=== PATIENT | female | born 1960 | race Caucasian/White ===

== ENCOUNTER 2017-07-25 00:55 | Inpatient (IN) | payer OTHER ==
[~2017-07-25] VITALS: Ht 167.6 cm; Wt 65.3 kg
[~2017-07-25 00:55] MED LIST: CLIN1CAP51 PO; FURO-85 PO; HYDCR1CL TOP; HYDR-3419 PO; LACT10SO17 PO; MAGN400T6 PO; MULT-506 PO; PANT40TA PO; SPIR50TA2 PO
[2017-07-25] MEDS ORDERED: SODIUM CHLORIDE 0.9% 1000ML 1,000 ML IV STA ×3 (01:40→03:09)
[2017-07-25 02:37] LABS: INR 1.4 (0.9-1.1); PARTIAL THROMBOPLASTIN RATIO 1.2; PROTHROMBIN TIME (PATIENT) 15.4 SECONDS (9.0-12.0)
[2017-07-25 02:40] LABS: ALT/SGPT 47 U/L (12-78); AST/SGOT 102 U/L (15-37); BLOOD UREA NITROGEN 17 mg/dl (7-18); BUN/CREATININE RATIO 20.8 (10-20); CALCIUM 8.2 mg/dl (8.5-10.1); CARBON DIOXIDE 25 mmol/L (21-32); CHLORIDE 98 mmol/L (98-107); CREATININE 0.84 mg/dl (0.60-1.20); GLUCOSE 115 mg/dl (70-99); SODIUM 130 mmol/L (136-145)
[2017-07-25 02:48] LABS: URINE APPEARANCE CLOUDY (CLEAR); URINE BILIRUBIN NEG (NEG); URINE COLOR DK YELLOW; URINE EPITHELIAL CELL AUTO >30 /lpf (0-5); URINE NITRITE NEG (NEG); URINE PH 5.5 (4.5-7.5); URINE SPECIFIC GRAVITY 1.018 (1.000-1.030); UROBILINOGEN NEG (NEG); ZZUR CULT IF INDIC CLEAN CATCH YES
[2017-07-25 02:51] LABS: ALB/GLOB RATIO 0.7 (0.9-2); ALKALINE PHOSPHATASE 82 U/L (45-117); CKMB/CK RATIO 0.7 (0-3.0); THYROID STIMULATING HORMONE 0.746 uIu/ml (0.300-4.500)
[2017-07-25 02:55] LABS: HEMATOCRIT 34.5 % (37-47); MEAN CELL VOLUME 97.7 fL (80-100); MEAN CORPUSCULAR HEMOGLOBIN 35.1 pg (25-34); MEAN CORPUSCULAR HGB CONC 35.9 g/dl (32-36); MEAN PLATELET VOLUME 10.9 fL (7.4-10.4); PLATELET COUNT 76 K/uL (130-400); RED BLOOD COUNT 3.53 M/uL (4.2-5.4); WHITE BLOOD COUNT 13.09 K/uL (4.8-10.8)
[2017-07-25 03:04] LABS: BASO % 0.1 %; BASO ABS # 0.01 K/uL (0-0.2); COMPLETE YES; EOS % 0.1 %; IG% 0.3 %; LYMPH ABS # 0.66 K/uL (1.2-3.4); MONO % 23.5 %; PLT ESTIMATE DECREASED; VACUOLIZATION 1+
[2017-07-25 03:04] LABS: MANUAL MICROSCOPIC REQUIRED? NO; REVIEW REQ? YES
[2017-07-25] MEDS ORDERED: IBUPROFEN 600 MG TAB PO STA (03:09)
[2017-07-25 03:28] LABS: MAGNESIUM 1.9 mg/dl (1.8-2.4)
[2017-07-25] MEDS ORDERED: CEFTRIAXONE SOD INJ 1 GM ADDVIAL IV STA (03:44)
[2017-07-25] MEDS ORDERED: DAPTOMYCIN IV STA (03:54)
[2017-07-25] MEDS ORDERED: SODIUM CHLORIDE 0.9% IV STA (03:54)
[2017-07-25] MEDS ORDERED: AZTREONAM IV 2,000 MG in DEXTROSE 5% 100ML 100 ML IV STA (03:54)
--- NOTE | 2017-07-25 04:01 | EMERGENCY ROOM VISIT NOTE ---
History First contact with patient: 01:25 Chief Complaint: OTHER COMPLAINT Stated Complaint: WEAKNESS History of Present Illness The patient is a 57 year old female who presents to the Emergency Room with complaints of fever, confusion, fatigue and lethargy. Patient states for the past week she's been feeling more lethargic. Patient states she's been seeing things that were not there and feeling confused at times. Patient states she's missed some doses of her lactulose on accident. Patient states she continues to occasionally drink alcohol even though she knows she is not supposed to do this with her cirrhosis. Patient follows with Stefania WOLFF. She saw one year ago and states she had a negative colonoscopy and endoscopy. Patient was an occasional cough and headache. Patient denies chest pain, dyspnea, abdominal pain, nausea, vomiting, diarrhea, neck stiffness, earache, sinus pain or congestion. Review of Systems See HPI for pertinent positives & negatives. A total of 10 systems reviewed and were otherwise negative. Past Medical/Surgical History Medical Problems: (1) Alcoholic cirrhosis of liver with ascites Surgical Problems: (1) History of appendectomy Family History Cancer Diabetes mellitus Heart disease Kidney disease Kidney stones Social History Smoking Status: Current Every Day Smoker Alcohol Use: occasionally Drug Use: none Housing Status: lives with family Occupation Status: employed Current/Historical Medications Scheduled Furosemide (Lasix), 20 MG PO DAILY Lactulose (Chronulac), 20 MG PO DAILY Magnesium Oxide (Mag-Ox), 400 MG PO BID Multivitamin (Multivitamin), 1 TAB PO DAILY Pantoprazole (Protonix), 40 MG PO DAILY Spironolactone (Aldactone), 50 MG PO DAILY Physical Exam Vital Signs Date Time Temp Pulse Resp B/P (MAP) Pulse Ox O2 Delivery O2 Flow Rate FiO2 07/25/17 03:01 99/65 07/25/17 02:55 84 21 97 07/25/17 02:40 78 21 96 07/25/17 02:39 80 16 94/59 97 07/25/17 02:38 94/59 07/25/17 02:13 96 Room Air 07/25/17 02:11 96/55 07/25/17 02:10 82 19 98 07/25/17 02:01 111/100 07/25/17 01:55 87 17 07/25/17 01:40 88 18 97 07/25/17 01:33 84 07/25/17 01:31 96/67 07/25/17 01:13 38.3 92 18 106/67 97 Room Air Physical Exam VITALS: Vitals are noted on the nurse's note and reviewed by myself. Vital signs stable. GENERAL: White female following commands appropriately, in no acute distress, nondiaphoretic, well-developed well-nourished. SKIN: The skin was without rashes, erythema, edema, or bruising. There is no tenting of the skin. Capillary reflex less than 2 seconds. HEAD: Normocephalic atraumatic. EARS: External auditory canals clear, tympanic membranes pearly banerjee without erythema or effusion bilaterally. EYES: Pupils equal round and reactive to light and accommodation. Conjunctivae without injection, sclerae without icterus. Extraocular movements intact. NOSE: Patent, turbinates without inflammation or discharge. No sinus tenderness. MOUTH: Mucous membranes moist. Pharynx without erythema or exudate. Uvula midline. Airway patent. Tongue does not deviate. NECK: Supple without nuchal rigidity. No lymphadenopathy. No thyromegaly. Cervical spine is nontender. No JVD. No meningeal signs HEART: Regular rate and rhythm without murmurs gallops or rubs. LUNGS: Clear to auscultation bilaterally without wheezes, rales or rhonchi. No dullness to percussion. No retractions or accessory muscle use. ABDOMEN: Positive bowel sounds x 4. Normal tympanic percussion. Soft, nontender, without masses or organomegaly. Hollins sign negative. No guarding or rebound tenderness. No CVA tenderness MUSCULOSKELETAL: No muscle atrophy, erythema, or edema noted. NEURO: Patient was alert and oriented to person place and time. Normal sensation to light and sharp touch. No focal neurological deficits. Medical Decision & Procedures Laboratory Results 07/25/17 02:04 Red Blood Count 3.53, Mean Corpuscular Volume 97.7, Mean Corpuscular Hemoglobin 35.1, Mean Corpuscular Hemoglobin Concent 35.9, Mean Platelet Volume 10.9, Neutrophils (%) (Auto) 71.0, Lymphocytes (%) (Auto) 5.0, Monocytes (%) (Auto) 23.5, Eosinophils (%) (Auto) 0.1, Basophils (%) (Auto) 0.1, Neutrophils # (Auto ) 9.29, Lymphocytes # (Auto) 0.66, Monocytes # (Auto) 3.08, Eosinophils # (Auto ) 0.01, Basophils # (Auto) 0.01 07/25/17 02:04 Test 07/25/17 02:00 07/25/17 02:04 07/25/17 02:05 07/25/17 02:11 Urine Color DK YELLOW Urine Appearance CLOUDY (CLEAR) Urine pH 5.5 (4.5-7.5) Urine Specific [place] 1.018 (1.000-1.030) Urine Protein 1+ (NEG) Urine Glucose (UA) NEG (NEG) Urine Ketones NEG (NEG) Urine Occult Blood 3+ (NEG) Urine Nitrite NEG (NEG) Urine Bilirubin NEG (NEG) Urine Urobilinogen NEG (NEG) Urine Leukocyte Esterase MODERATE (NEG) Urine WBC (Auto) >30 /hpf (0-5) Urine RBC (Auto) >30 /hpf (0-4) Urine Hyaline Casts (Auto) 1-5 /lpf (0-5) Urine Epithelial Cells (Auto) >30 /lpf (0-5) Urine Bacteria (Auto) 1+ (NEG) Urine Yeast (Auto) BUDDING (NONE PRSENT) White Blood Count 13.09 K/uL (4.8-10.8) Red Blood Count 3.53 M/uL (4.2-5.4) Hemoglobin 12.4 g/dL (12.0-16.0) Hematocrit 34.5 % (37-47) Mean Corpuscular Volume 97.7 fL (80-100) Mean Corpuscular Hemoglobin 35.1 pg (25-34) Mean Corpuscular Hemoglobin Concent 35.9 g/dl (32-36) Platelet Count 76 K/uL (130-400) Mean Platelet Volume 10.9 fL (7.4-10.4) Neutrophils (%) (Auto) 71.0 % Lymphocytes (%) (Auto) 5.0 % Monocytes (%) (Auto) 23.5 % Eosinophils (%) (Auto) 0.1 % Basophils (%) (Auto) 0.1 % Neutrophils # (Auto) 9.29 K/uL (1.4-6.5) Lymphocytes # (Auto) 0.66 K/uL (1.2-3.4) Monocytes # (Auto) 3.08 K/uL (0.11-0.59) Eosinophils # (Auto) 0.01 K/uL (0-0.5) Basophils # (Auto) 0.01 K/uL (0-0.2) RDW Standard Deviation 50.8 fL (36.4-46.3) RDW Coefficient of Variation 14.2 % (11.5-14.5) Immature Granulocyte % (Auto) 0.3 % Immature Granulocyte # (Auto) 0.04 K/uL (0.00-0.02) Toxic Vacuolation 1+ Platelet Estimate DECREASED Prothrombin Time 15.4 SECONDS (9.0-12.0) Prothromb Time International Ratio 1.4 (0.9-1.1) Activated Partial Thromboplast Time 31.6 SECONDS (21.0-31.0) Partial Thromboplastin Ratio 1.2 Anion Gap 7.0 mmol/L (3-11) Est Creatinine Clear Calc Drug Dose 68.1 ml/min Estimated GFR () 90.7 Estimated GFR (Non- 78.2 BUN/Creatinine Ratio 20.8 (10-20) Calcium Level 8.2 mg/dl (8.5-10.1) Magnesium Level 1.9 mg/dl (1.8-2.4) Total Bilirubin 2.6 mg/dl (0.2-1) Aspartate Amino Transf (AST/SGOT) 102 U/L (15-37) Alanine Aminotransferase (ALT/SGPT) 47 U/L (12-78) Alkaline Phosphatase 82 U/L (45-117) Total Creatine Kinase 203 U/L (26-192) Creatine Kinase MB 1.5 ng/ml (0.5-3.6) Creatine Kinase MB Ratio 0.7 (0-3.0) Troponin I < 0.015 ng/ml (0-0.045) Total Protein 6.6 gm/dl (6.4-8.2) Albumin 2.7 gm/dl (3.4-5.0) Globulin 3.9 gm/dl (2.5-4.0) Albumin/Globulin Ratio 0.7 (0.9-2) Procalcitonin 1.36 ng/ml (0-0.5) Thyroid Stimulating Hormone (TSH) 0.746 uIu/ml (0.300-4.500) Ammonia 38.0 umol/L (11-32) Bedside Lactic Acid Venous 1.38 mmol/L (0.90-1.70) Medications Administered Medications (Trade) Dose Ordered Sig/Parth Route Start Time Stop Time Status Last Admin Dose Admin Sodium Chloride 1,000 ml @ 999 mls/hr Q1H1M STAT IV 07/25/17 01:40 07/25/17 02:40 DC 07/25/17 01:40 999 MLS/HR Sodium Chloride 1,000 ml @ 125 mls/hr Q8H STAT IV 07/25/17 01:40 07/25/17 09:39 07/25/17 02:59 125 MLS/HR Ibuprofen (Motrin Tab) 600 mg NOW STAT PO 07/25/17 03:09 07/25/17 03:10 DC 07/25/17 03:24 600 MG Sodium Chloride 1,000 ml @ 999 mls/hr Q1H1M STAT IV 07/25/17 03:09 07/25/17 04:09 07/25/17 03:25 999 MLS/HR ED Course Prior records/ancillary studies reviewed. Triage Nursing notes reviewed. Additional history obtained from family The patient's history was concerning for fever and feeling confused. Differential diagnosis: Etiologies such as hepatic encephalopathy, viral syndrome, otitis, pharyngitis, pneumonia, influenza, meningitis, urinary tract infection, sepsis, bacteremia, as well as others were entertained. Physical examination: Patient is alert and oriented 3 ER treatment provided: IV fluids On reassessment the patient felt better. Diagnostics interpreted by me: ECG: Normal sinus, normal intervals, no acute ST-T wave changes. Impression normal sinus rhythm interpreted by myself The labs revealed leukocytosis, elevated pro calcitonin, urine concerning for infection and sent for culture Negative lactic acid, blood cultures pending Imaging studies: CT head negative for intracranial bleed per stat radiology Chest x-ray with no acute consolidation, pneumothorax or free air per my interpretation Consultation: A consultation was placed with Dr Akhtar. The case was discussed and diagnostics were reviewed. The patient was evaluated in the ER for further treatment. This appears to be consistent with UTI with sepsis and altered mental status. Patient will be evaluated by medicine for possible admission. She was started on broad-spectrum antibiotics. She is a penicillin allergy of hives. She is unsure but thinks she can take cephalosporin but is not 100%. Urine culture is pending. Blood cultures pending. No pneumonia on x-ray. Patient was hypotensive, tachycardic and febrile with a leukocytosis and concerns her urine infection. By the evaluation outlined above emergent etiologies such as otitis, pharyngitis, pneumonia, meningitis, bacteremia, as well as others were deemed relatively unlikely. The pt informed about the findings as listed above. All questions were answered and pleased with the treatment. Case reviewed with my attending. Medical Decision As above Medication Reconcilliation Current Medication List: was personally reviewed by me Blood Pressure Screening Patient's blood pressure: Normal blood pressure Impression Primary Impression: UTI (urinary tract infection) Additional Impressions: Thrombocytopenia Altered mental status Sepsis Departure Information Dispostion Being Evaluated By Hospitalist Condition FAIR Referrals Melanie Balbuena, C.R.N.P. (PCP) Patient Instructions My [facility] Problem Qualifiers Primary Impression: UTI (urinary tract infection) Urinary tract infection type: acute cystitis Hematuria presence: with hematuria Qualified Codes: N30.01 - Acute cystitis with hematuria
[2017-07-25] MEDS ORDERED: POLYETHYLENE (MIRALAX) 17 GM PACK PO PRN (04:30)
[2017-07-25] MEDS ORDERED: ONDANSETRON INJ 2 MG/ML 2 ML VIAL IV PRN (04:30)
--- NOTE | 2017-07-25 04:34 | History and Physical ---
History & Physical Date & Time of Service: Jul 25, 2017 at 04:28 Chief Complaint: Weakness Primary Care Physician: Melanie Balbuena C.R.N.P. History of Present Illness Source: patient 57-year-old female with past medical history of liver cirrhosis presented to the ER with lethargy. The patient stated that she be in lethargic for the last 2 days associated with fevers and chills. 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 Last drink was last weekend but she is unable to quantify how much she drinks. Denies any nausea, vomiting or diarrhea. Denies any abdominal pain, bright red bleeding per rectum or hematemesis. She did complain of some dysuria but denies any hematuria. Complains of a headache currently, all over her head with no radiation but denies any neck pain or photophobia. Denies any rashes, petechiae, bleeding gums. She also stated that she has had decreased by mouth intake over the last few days and had not taken her medications also Past Medical/Surgical History Medical Problems: (1) Alcoholic cirrhosis of liver with ascites Status: Chronic Surgical Problems: (1) History of appendectomy Status: Resolved Family History Cancer Diabetes mellitus Heart disease Kidney disease Kidney stones Social History Smoking Status: Current Every Day Smoker Drug Use: none Occupational Status: employed Multi-Drug Resistant Organisms History of MDRO: No Allergies Coded Allergies: Penicillins (Verified Allergy, Unknown, 07/25/17) Home Medications Scheduled Furosemide (Lasix), 20 MG PO DAILY Lactulose (Chronulac), 20 GM PO DAILY Magnesium Oxide (Mag-Ox), 400 MG PO BID Multivitamin (Multivitamin), 1 TAB PO DAILY Pantoprazole (Protonix), 40 MG PO DAILY Spironolactone (Aldactone), 50 MG PO DAILY Review of Systems Constitutional: + fever, + chills, + sweats, + problem reported (lethargic) Eyes: No worsening of vision ENT: No hearing loss Respiratory: No cough Cardiovascular: No chest pain, No orthopnea Abdomen: No pain, No nausea, No vomiting Musculoskeletal: No joint pain Genitourinary - Female: + dysuria, No hematuria Neurologic: No memory loss Psychiatric: No depression symptoms Endocrine: + fatigue Integumentary: No rash Physical Exam Vital Signs Date Time Temp Pulse Resp B/P (MAP) Pulse Ox O2 Delivery O2 Flow Rate FiO2 07/25/17 04:23 36.9 07/25/17 03:01 99/65 07/25/17 02:55 84 21 97 07/25/17 02:40 78 21 96 07/25/17 02:39 80 16 94/59 97 07/25/17 02:38 94/59 07/25/17 02:13 96 Room Air 07/25/17 02:11 96/55 07/25/17 02:10 82 19 98 07/25/17 02:01 111/100 07/25/17 01:55 87 17 07/25/17 01:40 88 18 97 07/25/17 01:33 84 07/25/17 01:31 96/67 07/25/17 01:13 38.3 92 18 106/67 97 Room Air General Appearance: WD/WN, no apparent distress Head: normocephalic Eyes: + abnormal sclerae exam (icteric) Neck: supple Respiratory/Chest: lungs clear, normal breath sounds, no respiratory distress, no accessory muscle use Cardiovascular: regular rate, rhythm Abdomen/GI: soft, + distended Extremities/Musculoskelatal: no pedal edema Neurologic/Psych: normal mood/affect, oriented x 3 Skin: + pertinent finding (darling) Diagnostics Laboratory Results Results Past 24 Hours Test 07/25/17 02:00 07/25/17 02:04 07/25/17 02:05 07/25/17 02:11 Range/Units Urine Color DK YELLOW Urine Appearance CLOUDY CLEAR Urine pH 5.5 4.5-7.5 Urine Specific [place] 1.018 1.000-1.030 Urine Protein 1+ NEG Urine Glucose (UA) NEG NEG Urine Ketones NEG NEG Urine Occult Blood 3+ NEG Urine Nitrite NEG NEG Urine Bilirubin NEG NEG Urine Urobilinogen NEG NEG Urine Leukocyte Esterase MODERATE NEG Urine WBC (Auto) >30 0-5 /hpf Urine RBC (Auto) >30 0-4 /hpf Urine Hyaline Casts (Auto) 1-5 0-5 /lpf Urine Epithelial Cells (Auto) >30 0-5 /lpf Urine Bacteria (Auto) 1+ NEG Urine Yeast (Auto) BUDDING NONE PRSENT White Blood Count 13.09 4.8-10.8 K/uL Red Blood Count 3.53 4.2-5.4 M/uL Hemoglobin 12.4 12.0-16.0 g/dL Hematocrit 34.5 37-47 % Mean Corpuscular Volume 97.7 80-100 fL Mean Corpuscular Hemoglobin 35.1 25-34 pg Mean Corpuscular Hemoglobin Concent 35.9 32-36 g/dl Platelet Count 76 130-400 K/uL Mean Platelet Volume 10.9 7.4-10.4 fL Neutrophils (%) (Auto) 71.0 % Lymphocytes (%) (Auto) 5.0 % Monocytes (%) (Auto) 23.5 % Eosinophils (%) (Auto) 0.1 % Basophils (%) (Auto) 0.1 % Neutrophils # (Auto) 9.29 1.4-6.5 K/uL Lymphocytes # (Auto) 0.66 1.2-3.4 K/uL Monocytes # (Auto) 3.08 0.11-0.59 K/uL Eosinophils # (Auto) 0.01 0-0.5 K/uL Basophils # (Auto) 0.01 0-0.2 K/uL RDW Standard Deviation 50.8 36.4-46.3 fL RDW Coefficient of Variation 14.2 11.5-14.5 % Immature Granulocyte % (Auto) 0.3 % Immature Granulocyte # (Auto) 0.04 0.00-0.02 K/uL Toxic Vacuolation 1+ Platelet Estimate DECREASED Prothrombin Time 15.4 9.0-12.0 SECONDS Prothromb Time International Ratio 1.4 0.9-1.1 Activated Partial Thromboplast Time 31.6 21.0-31.0 SECONDS Partial Thromboplastin Ratio 1.2 Sodium Level 130 136-145 mmol/L Potassium Level 4.0 3.5-5.1 mmol/L Chloride Level 98 98-107 mmol/L Carbon Dioxide Level 25 21-32 mmol/L Anion Gap 7.0 3-11 mmol/L Blood Urea Nitrogen 17 7-18 mg/dl Creatinine 0.84 0.60-1.20 mg/dl Est Creatinine Clear Calc Drug Dose 68.1 ml/min Estimated GFR () 90.7 Estimated GFR (Non- 78.2 BUN/Creatinine Ratio 20.8 10-20 Random Glucose 115 70-99 mg/dl Calcium Level 8.2 8.5-10.1 mg/dl Magnesium Level 1.9 1.8-2.4 mg/dl Total Bilirubin 2.6 0.2-1 mg/dl Aspartate Amino Transf (AST/SGOT) 102 15-37 U/L Alanine Aminotransferase (ALT/SGPT) 47 12-78 U/L Alkaline Phosphatase 82 45-117 U/L Total Creatine Kinase 203 26-192 U/L Creatine Kinase MB 1.5 0.5-3.6 ng/ml Creatine Kinase MB Ratio 0.7 0-3.0 Troponin I < 0.015 0-0.045 ng/ml Total Protein 6.6 6.4-8.2 gm/dl Albumin 2.7 3.4-5.0 gm/dl Globulin 3.9 2.5-4.0 gm/dl Albumin/Globulin Ratio 0.7 0.9-2 Procalcitonin 1.36 0-0.5 ng/ml Thyroid Stimulating Hormone (TSH) 0.746 0.300-4.500 uIu/ml Ammonia 38.0 11-32 umol/L Bedside Lactic Acid Venous 1.38 0.90-1.70 mmol/L Microbiology Results 07/25/17 Blood Culture, Received Pending 07/25/17 Blood Culture, Received Pending 07/25/17 Urine Culture, Received Pending Impression Assessment and Plan 57-year-old female with a past medical history of alcoholic cirrhosis currently still drinking alcohol presented to the ER with complaints of lethargy which started about 2 days ago associated with fevers and chills. Complains of some periods of confusion intermittently. Considering her history of cirrhosis, Fever is concerning for SBP however her UA was also positive for moderate leuk esterase and 3+ occult blood Altered mental status likely secondary to Metabolic encephalopathy - Head CT negative for any intracranial bleed - Ammonia at 38, monitor ammonia - Sodium at 130 - She is currently oriented 3 Fever in the setting of alcoholic cirrhosis: - SBP versus UTI - Lactate at 1.38, pro calcitonin at 1.36 - UA positive, urine culture pending - Ultrasound abdomen ordered for ascites, consider paracentesis to rule out SBP and IV albumin - GI consult - Continue Levaquin UTI - UA positive for 3+ occult blood, moderate leuk esterase, more 30 WBCs - Urine culture pending - Received a dose of aztreonam in the ER - continue Levaquin as above Hyponatremia: - Sodium 130, monitor - continue NSS Alcoholic liver cirrhosis: - Total bili at 2.6, AST at 102 - continue lactulose, spironolactone, Lasix Thrombocytopenia: - Platelets at 76 likely secondary to cirrhosis - Monitor platelets Chronic alcohol use - Monitor for alcohol withdrawal Smoking history: Smoking cessation counseling Full code DVT prophylaxis: SCDs Chemical and regulation avoided considering low platelets Disposition: Admitted to telemetry Resident Physician Supervision Note: I was present with Dr. Rodriguez during the history and exam. I discussed the case with the resident and agree with the findings and plan as documented in the note. Any exceptions or clarifications are listed here: 57 y/o F Hx ETOH abuse and cirrhosis Presenting with fever and mild confusion - UTI present - SBP is possible OE AAO x 3 S1,2 R CTAB NT , soft - no clear ascites - no tenderness No CCE Mild jaundice P: Antibiotics provided - will cover both for both UTI and SBP although clinically unlikely - US pending for Dx of ascites Ativan PRN for alcohol withdrawal - Thiamine and Folic provided Documented By: Rolando Akhtar Level of Care Telemetry Resuscitation Status FULL RESUSCITATION VTE Prophylaxis VTE Risk Assessment Done? Y/N: Yes Risk Level: Low Given or contraindicated: SCD's Resident Tracking Resident Involvement: Resident Care Provided Care Provided: Adult Hospital Medicine
[2017-07-25 05:37] VITALS: BP 96/60; PULSE 74; TEMP 36.8; O2SAT 97; Ht 167.6 cm; Wt 65.3 kg
[2017-07-25] MEDS ORDERED: SODIUM CHLORIDE 0.9% 1000ML 1,000 ML IV SCH (06:00)
[2017-07-25] MEDS ORDERED: LEVOFLOXACIN / D5W 750 MG in PREMIXED IN D5W 150 ML IV SCH (06:00)
--- NOTE | 2017-07-25 06:17 | DIAGNOSTIC IMAGING REPORT ---
CHEST ONE VIEW PORTABLE HISTORY: 57 years-old Female Sepsis acute sepsis with weakness and lethargy. initial exam. COMPARISON: Portable chest radiograph 12/10/2014. TECHNIQUE: Portable upright AP view of the chest FINDINGS: Cardiac silhouette is upper limits of normal, unchanged. There is mild pulmonary vascular congestion without pneumothorax, lobar airspace consolidation or overt pulmonary edema. There is minimal blunting of the costophrenic angles. Hazy patchy subsegmental left basilar opacity noted. Bones are grossly intact. IMPRESSION: 1. Mild cardiomegaly without overt pulmonary edema. 2. Mild blunting of the costophrenic angles may reflect trace pleural effusions. 3. Hazy left basilar opacity suggests atelectasis. The above report was generated using voice recognition software. It may contain grammatical, syntax or spelling errors. Electronically signed by: Faisal Engel M.D. 07/25/2017 6:16 AM Dictated Date/Time: 07/25/2017 6:13 AM
[2017-07-25] MEDS ORDERED: THIAMINE HCL 100 MG TAB PO SCH (06:30)
[2017-07-25] MEDS ORDERED: LORAZEPAM 1 MG TAB PO PRN (06:30)
--- NOTE | 2017-07-25 06:33 | DIAGNOSTIC IMAGING REPORT ---
ASCITES-ABDOMEN LIMITED HISTORY: 57 years-old Female h/o cirrhosis acute fever with altered mental status and history of traumatic liver disease. Initial exam. COMPARISON: Ultrasound 12/08/2014 TECHNIQUE: Multiple real-time sonographic images of the abdomen were obtained assessing for ascites. FINDINGS: Cholelithiasis incidentally noted with gallbladder wall thickening measuring up to 1.5 cm, likely secondary to underlying hypoproteinemia. Minimal ascites is noted within all quadrants of the abdomen, greatest in the right lower quadrant. No large volume ascites identified. Heterogeneous appearance of the liver with marginal nodularity compatible with cirrhotic liver disease is seen. IMPRESSION: 1. Cirrhosis with only minimal ascites of the abdomen. No drainable collection identified. 2. Incidental note is made of cholelithiasis. The above report was generated using voice recognition software. It may contain grammatical, syntax or spelling errors. Electronically signed by: Faisal Engel M.D. 07/25/2017 6:31 AM Dictated Date/Time: 07/25/2017 6:27 AM
[2017-07-25 07:43] VITALS: BP 93/60; PULSE 67; TEMP 36.4; O2SAT 96
--- NOTE | 2017-07-25 08:00 | DIAGNOSTIC IMAGING REPORT ---
HEAD WITHOUT CONTRAST (CT) CLINICAL HISTORY: 57 years-old Female with AMS/fever/cirrhosis. Acute altered mental status with fever and lethargy. Initial exam. TECHNIQUE: Multiple axial CT images of the head were obtained without contrast. A dose lowering technique was utilized adhering to the principles of ALARA. CT DOSE: 537.48 mGy.cm COMPARISON: Brain MR 03/30/2011. FINDINGS: No acute intracranial hemorrhage, midline shift, mass, large territorial ischemia or abnormal extra-axial collection. The calvarium is intact. The paranasal sinuses, mastoid air cells, and middle ear cavities are clear. IMPRESSION: No acute intracranial abnormality. The above report was generated using voice recognition software. It may contain grammatical, syntax or spelling errors. Electronically signed by: Faisal Engel M.D. 07/25/2017 7:59 AM Dictated Date/Time: 07/25/2017 7:57 AM
[2017-07-25] MEDS ORDERED: LACTULOSE SYRUP 20 GM/30 ML UDC PO SCH (09:00)
[2017-07-25] MEDS ORDERED: FUROSEMIDE 20 MG TAB PO SCH (09:00)
[2017-07-25] MEDS ORDERED: PANTOprazole SOD 40 MG TAB PO SCH (09:00)
[2017-07-25] MEDS ORDERED: SPIRONOLACTONE 25 MG TAB PO SCH (09:00)
[2017-07-25 09:13] LABS: HEMATOCRIT 33.9 % (37-47); MEAN CELL VOLUME 98.8 fL (80-100); MEAN CORPUSCULAR HEMOGLOBIN 35.3 pg (25-34); MEAN CORPUSCULAR HGB CONC 35.7 g/dl (32-36); RED BLOOD COUNT 3.43 M/uL (4.2-5.4); WHITE BLOOD COUNT 10.54 K/uL (4.8-10.8)
[2017-07-25 09:18] LABS: MEAN PLATELET VOLUME 11.1 fL (7.4-10.4); PLATELET COUNT 67 K/uL (130-400)
[2017-07-25 09:45] LABS: BASO % 0.1 %; BASO ABS # 0.01 K/uL (0-0.2); COMPLETE YES; ECHINOCYTES 1+; EOS % 0.6 %; IG% 0.3 %; LYMPH % 7.6 %; MONO % 21.3 %; NEUT % 70.1 %; VACUOLIZATION 1+
[2017-07-25 09:47] LABS: BUN/CREATININE RATIO 21.9 (10-20); CALCIUM 7.9 mg/dl (8.5-10.1); CREATININE 0.86 mg/dl (0.60-1.20); POTASSIUM 3.6 mmol/L (3.5-5.1)
[2017-07-25 09:50] LABS: ALB/GLOB RATIO 0.7 (0.9-2)
[2017-07-25 11:54] VITALS: BP 90/59; PULSE 78; TEMP 36.7; O2SAT 98
[2017-07-25] MEDS ORDERED: LEVO1TAB35 PO (13:18)
--- NOTE | 2017-07-25 13:51 | Discharge Instructions ---
Discharge Instructions Date of Service Jul 25, 2017. Admission Reason for Admission: Altered Mental Status Discharge Discharge Diagnosis / Problem: Urinary Tract Infection Discharge Goals Goal(s): Decrease discomfort, Improve function, Therapeutic intervention Activity Recommendations Activity Limitations: per Instructions/Follow-up section Lifting Limitations: no more than 10 pounds (For one month after treatment with antibiotics) Exercise/Sports Limitations: none (Limit physical activity until 1 month after discharge) . Instructions / Follow-Up Instructions / Follow-Up You were treated in the hospital for a suspected urinary tract infection with antibiotics. Based on your clinical improvement since admission, you will be discharged this afternoon with a total course of 7 days of antibiotics. It is essential that you follow up with your primary care physician tomorrow morning ton ensure that you are continuing to improve and that you do not decline. - Take 1 tab of Levaquin 750mg by mouth every morning for 6 more days - Resume your other home medications - Follow up with your primary care provider tomorrow morning to ensure that you are continuing to improve, and to review the status of your urine cultures taken in the hospital - If you notice any symptoms including fever, headache, lightheadedness, chills , shortness of breath, chest pain, nausea, vomiting, burning on urination, abdominal pain, or any other concerning symptoms for worsening infection please return to the emergency department immediately Current Hospital Diet Patient's current hospital diet: Regular Diet Discharge Diet Recommended Diet: Regular Diet Pending Studies Studies pending at discharge: yes List of pending studies: Urine Culture, Blood Culture Medical Emergencies . Who to Call and When: Medical Emergencies: If at any time you feel your situation is an emergency, please call 911 immediately. . Non-Emergent Contact Non-Emergency issues call your: Primary Care Provider . . "Provider Documentation" section prepared by Estevan Lainez. . VTE Core Measure Inpt VTE Proph given/why not?: SCD's
[2017-07-25 15:00] VITALS: BP 90/59; PULSE 78; TEMP 36.7; O2SAT 98
--- NOTE | 2017-07-25 21:08 | Discharge Summary ---
Discharge Summary Date of Service Jul 25, 2017. (Estevan Lainez MD) Discharge Summary Admission Date: Jul 25, 2017 at 04:27 Discharge Date: Jul 25, 2017 Discharge Disposition: Home Principal Diagnosis: UTI Problems/Secondary Diagnoses: Alcoholic Cirrhosis (Estevan Lainez MD) Medication Reconciliation New Medications: Levofloxacin (Levaquin) 750 Mg Tab 750 MG PO DAILY for 6 Days, #6 TAB Continued Medications: Furosemide (Lasix) 20 Mg Tab 20 MG PO DAILY, TAB Lactulose (Chronulac) 10 Gm/15 Ml Syrp 20 GM PO DAILY Magnesium Oxide (Mag-Ox) 400 Mg Tab 400 MG PO BID, TAB Multivitamin (Multivitamin) Tab 1 TAB PO DAILY, TAB Pantoprazole (Protonix) 40 Mg Tab 40 MG PO DAILY Spironolactone (Aldactone) 50 Mg Tab 50 MG PO DAILY, TAB Discharge Exam Review of Systems: Constitutional: No fever, No chills, No fatigue ENT: No sore throat Respiratory: No cough, No sputum, No shortness of breath Cardiovascular: No chest pain, No palpitations Abdomen: No pain, No nausea, No vomiting, No diarrhea, No constipation Musculoskeletal: No joint pain, No calf pain Genitourinary - Female: No dysuria, No urinary frequency, No urinary urgency , No urinary incontinence, No urinary retention, No hematuria, No vaginal discharge Endocrine: No fatigue, No excessive thirst Physical Exam: General Appearance: WD/WN, no apparent distress Eyes: normal inspection, sclerae normal Respiratory/Chest: chest non-tender, lungs clear, normal breath sounds Cardiovascular: regular rate, rhythm, no edema, no gallop Abdomen / GI: normal bowel sounds, non tender, soft Extremities: normal inspection, no calf tenderness, no pedal edema Neurologic/Psychiatric: alert, normal mood/affect, normal reflexes, oriented x 3 (Estevan Lainez MD) Hospital Course Patient is a 57 year old female that presented to the ED with a 2 day history of lethargy, fever, and chills, but also states she had been fatigued and feeling unwell for the last week. She also states that she had been having urinary symptoms including burning on urination for the last week as well. Urinalysis showed moderate leukocyte esterase, occult blood +3, WBC > 30, and Bacteria +1. There was also concern for bacterial peritonitis due to the patients history of cirrhosis but we an ultrasounds showed only minimal ascites with no significant abdominal fluid collection. The patient was started on IV Levaquin and significantly improved overnight. She was afebrile, denying any urinary discomfort, abdominal pain, headaches. Due to the significant improvement in the patients clinical status in addition to her lack of symptoms we felt comfortable discharging the patient home with the promise of following up with her primary care physician the next day in order to ensure she is improving and has the correct antibiotic coverage. Total Time Spent: Greater than 30 minutes This includes examination of the patient, discharge planning, medication reconciliation, and communication with other providers. (Estevan Lainez MD) Resident Physician Supervision Note: I interviewed and examined the patient. Discussed with Dr. Lainez and agree with findings and plan as documented in the note. Any exceptions or clarifications are listed here: None Documented By: Carlin Stephen feeling better mentation cleared, afebrile, appearing more stable. all other ROS otherwise negative except for as above. very very insistent on going home. vitals noted nad breathing unlabored no pallor or icterus UTI w sepsis/AMS (probable septic encephalopathy) present on admission - improving on levaquin. pt insistent on going home. siena discussion of risks/ benefits and need for f/u on cultures as well as close PCP f/u and return if any worsening or worrisome sx at all. d/w pt frankly that we would feel more comfortable keeping her an additional day for further growth on cultures (and/ or further reassurance that levaquin as empiric treatment is effective) but that as long as she is reliable w abx/follow up/returning with worsening, her insistence on going home is not so unreasonable as to warrant an AMA. home on levaquin, follow Cx, discussed tendonitis/tendonopathy risk cirrhosis - implored to stop drinking entirely as she does not appear to be truly at [facility]SL[facility], so cirrhosis may stabilize if she stops home as above, PCP tomorrow. levaquin pending further culture results Total Time Spent: Greater than 30 minutes (aCrlin Stephen, Eliu.Megha) Discharge Instructions Please refer to the electronic Patient Visit Report (Discharge Instructions) for additional information. (Estevan Lainez MD) Additional Copies To Sree,Melanie L., Asha
== END 2017-07-25 15:15 | disposition home or self-care (01) | DRG 871 ==
LOC: C.EDB 00:57 → C.2T 04:27 → ENRESERV 04:32
PROVIDERS: ADMIT Family Medicine; ATTEND Family Medicine
DX: A41.9 Sepsis, unspecified organism (principal); G93.41 Metabolic encephalopathy; N39.0 Urinary tract infection, site not specified; E87.1 Hypo-osmolality and hyponatremia; K70.30 Alcoholic cirrhosis of liver without ascites; F17.200 Nicotine dependence, unspecified, uncomplicated; Z79.899 Other long term (current) drug therapy

== ENCOUNTER → 2018-04-07 | Outpatient (CLI) | payer OTHER ==
[~2018-04-07] MED LIST changes: -CLIN1CAP51 PO; -HYDCR1CL TOP; -HYDR-3419 PO
== END | disposition home or self-care (01) ==
LOC: C.LABSPEC 13:19
PROVIDERS: ATTEND Obstetrics & Gynecology
DX: Z11.3 Encounter for screening for infections with a predominantly sexual mode of transmission (principal)

== ENCOUNTER → 2018-04-07 | Outpatient (CLI) | payer OTHER | END | disposition home or self-care (01) | LOC: C.PAPS 13:57 | PROVIDERS: ATTEND Obstetrics & Gynecology | DX: Z01.419 Encounter for gynecological examination (general) (routine) without abnormal findings (principal) ==

== ENCOUNTER → 2018-07-11 | Outpatient (CLI) | payer OTHER ==
[~2018-07-11] MED LIST changes: -LACT10SO17 PO; +LACT10SO3 PO
[2018-07-11 12:55] LABS: HEMATOCRIT 39.5 % (37-47); HEMOGLOBIN 13.7 g/dL (12.0-16.0); MEAN CELL VOLUME 98.5 fL (80-100); MEAN CORPUSCULAR HEMOGLOBIN 34.2 pg (25-34); MEAN CORPUSCULAR HGB CONC 34.7 g/dl (32-36); MEAN PLATELET VOLUME 10.4 fL (7.4-10.4); PLATELET COUNT 97 K/uL (130-400); RED CELL DISTRIBUTION WIDTH CV 15.2 % (11.5-14.5); RED CELL DISTRIBUTION WIDTH SD 55.1 fL (36.4-46.3); WHITE BLOOD COUNT 6.79 K/uL (4.8-10.8)
[2018-07-11 13:16] LABS: BASO % 0.4 %; BASO ABS # 0.03 K/uL (0-0.2); EOS % 2.1 %; EOS ABS # 0.14 K/uL (0-0.5); IG# 0.01 K/uL (0.00-0.02); LYMPH % 12.7 %; LYMPH ABS # 0.86 K/uL (1.2-3.4); MONO % 19.3 %; MONO ABS # 1.31 K/uL (0.11-0.59); NEUT % 65.4 %; NEUT ABS # 4.44 K/uL (1.4-6.5)
[2018-07-11 14:00] LABS: ALBUMIN 3.6 gm/dl (3.4-5.0); ALKALINE PHOSPHATASE 168 U/L (45-117); ALT/SGPT 23 U/L (12-78); AST/SGOT 35 U/L (15-37); BLOOD UREA NITROGEN 9 mg/dl (7-18); CARBON DIOXIDE 28 mmol/L (21-32); CHOLESTEROL 138 mg/dl (0-200); CREATININE 0.83 mg/dl (0.60-1.20); GLUCOSE 112 mg/dl (70-99); LDL CHOLESTEROL CALCULATED 64 mg/dl; POTASSIUM 3.5 mmol/L (3.5-5.1); SODIUM 142 mmol/L (136-145); TOTAL PROTEIN 7.4 gm/dl (6.4-8.2)
== END | disposition home or self-care (01) ==
LOC: C.LABBFT 09:51
PROVIDERS: ATTEND Nurse Practitioner
DX: Z13.228 Encounter for screening for other metabolic disorders (principal); Z13.6 Encounter for screening for cardiovascular disorders; R30.0 Dysuria; R10.9 Unspecified abdominal pain